=== PATIENT | female | born 1950 | race Caucasian/White ===

== ENCOUNTER 2018-10-08 06:00 | Observation (INO) ==
[2018-10-01 17:56] LABS: URINE SOURCE CLEAN CATCH
[2018-10-01 17:59] LABS: BASO# 0.04 X1000 (0.0-0.2); BASO% 0.4 % (0.0-0.8); EOS# 0.22 X1000 (0.0-0.7); EOS% 2.4 % (0.0-10.0); HEMATOCRIT 40.3 % (37.0-47.0); HEMOGLOBIN 12.5 g/dL (12.0-16.0); LYMPH# 1.73 X1000 (1.2-3.4); LYMPH% 18.5 % (20.5-51.1); MCH 25.3 PG (27-31); MCV 81.6 FL (81-99); MONO# 0.82 X1000 (0.11-0.59); MONO% 8.8 % (1.7-9.3); MPV 9.7 FL (7.4-10.4); NEUT# 6.52 X1000 (1.4-6.5); NEUT% 69.9 % (42.2-75.2); PLT 345 X1000 (130-400); RBC 4.94 XMIL (4.2-5.4); UR EPITHELIAL CELLS <10 /HPF (<10); URINE BACTERIA NEGATIVE /HPF; URINE RBC <10 /HPF (<10); URINE WBC <10 /HPF (<10); WBC 9.33 X1000 (4.8-10.8)
--- NOTE | 2018-10-01 17:59 | EKG Report ---
Test Performed on : 10/01/2018 5:14:43 PM Test Reason : PAT Blood Pressure : / mmHG Vent. Rate : 086 BPM Atrial Rate : 086 BPM P-R Int : 178 ms QRS Dur : 098 ms QT Int : 368 ms P-R-T Axes : 052 021 035 degrees QTc Int : 440 ms Normal sinus rhythm. Normal ECG When compared with ECG of 19-FEB-2018 10:59, No significant change was found Confirmed by Regan Coombs MD ([id number]) on 10/01/2018 9:00:02 PM
[2018-10-01 18:00] LABS: BILIRUBIN URINE NEGATIVE (NEGATIVE); BLOOD URINE SMALL (NEGATIVE); COLOR YELLOW; GLUCOSE URINE NEGATIVE (NEGATIVE); KETONE URINE NEGATIVE (NEGATIVE); LEUKOCYTES URINE SMALL (NEGATIVE); NITRITE URINE NEGATIVE (NEGATIVE); PH URINE 5.5; PROTEIN URINE NEGATIVE (NEGATIVE); SP GRAVITY URINE 1.017; TURBIDITY URINE CLEAR (CLEAR); UROBILINOGEN URINE NORMAL (NORMAL)
[2018-10-01 18:06] LABS: INR 0.88; PROTIME 12.7 Seconds (11.0-16.0)
[2018-10-01 18:07] LABS: PTT 29.6 Seconds (22.3-41.8)
[2018-10-01 18:58] LABS: AGAP 13; BUN 13 mg/dL (8-22); CALCIUM 9.1 mg/dL (8.8-10.2); CHLORIDE 105 mmol/L (98-107); COSMO 288; CREATININE 0.7 mg/dL (0.5-0.9); ESTIMATED GFR > 60; GLUCOSE 118 mg/dL (70-104); POTASSIUM 4.1 mmol/L (3.5-5.1); SODIUM 144 mmol/L (136-145); TCO2 26 mmol/L (25-35)
[2018-10-08] MEDS ORDERED: COLACE ONE (06:23)
[2018-10-08] MEDS ORDERED: LYRICA ONE (06:23)
[2018-10-08] MEDS ORDERED: LR 1,000 ML ONE (06:23)
[2018-10-08] MEDS ORDERED: CELEBREX ONE (06:23)
[2018-10-08] MEDS ORDERED: REGLAN ONE (06:23)
[2018-10-08] MEDS ORDERED: KEFZOL 1 GM/D5W 2 GM/100 ML IVPB ONE (06:23)
[2018-10-08] MEDS ORDERED: PEPCID ONE (06:23)
[2018-10-08] MEDS ORDERED: FENTANYL ONE (06:52)
[2018-10-08] MEDS ORDERED: XYLOCAINE-MPF 2% ONE (06:52)
[2018-10-08] MEDS ORDERED: DIPRIVAN 1% ONE (06:52)
[2018-10-08] MEDS ORDERED: ROBINUL ONE (06:52)
[2018-10-08] MEDS ORDERED: DURAMORPH ONE (07:02)
[2018-10-08] MEDS ORDERED: VANCOMYCIN ONE (07:03)
[2018-10-08] MEDS ORDERED: TORADOL ONE (07:03)
[2018-10-08] MEDS ORDERED: MARCAINE 0.25% PF/EPI 1:200,000 ONE (07:03)
[2018-10-08] MEDS ORDERED: SODIUM CHLORIDE 0.9% ONE (07:03)
[2018-10-08] MEDS ORDERED: EXPAREL 1.3% ONE (07:04)
[2018-10-08] MEDS ORDERED: NEOSPORIN G.U. IRRIGANT ONE (07:04)
[2018-10-08] MEDS ORDERED: VERSED ONE ×2 (08:03→09:44)
[2018-10-08] MEDS ORDERED: ZOFRAN ONE (08:03)
[2018-10-08] MEDS ORDERED: OFIRMEV 1000 MG/ISOTONIC SOLN 1,000 MG/100 ML BOTTLE ONE (08:03)
[2018-10-08] MEDS ORDERED: DECADRON ONE (08:03)
[2018-10-08] MEDS: CYKLOKAPRON 1,000 MG/NS 2,000 MG/200 ML IVPB ONE ×2 (08:45→09:52)
[2018-10-08] MEDS ORDERED: NS 1,000 ML ONE (10:32)
[2018-10-08 10:49] LABS: URINE SOURCE CATH
[2018-10-08 11:00] LABS: BILIRUBIN URINE NEGATIVE (NEGATIVE); BLOOD URINE NEGATIVE (NEGATIVE); COLOR STRAW; GLUCOSE URINE NEGATIVE (NEGATIVE); KETONE URINE NEGATIVE (NEGATIVE); LEUKOCYTES URINE NEGATIVE (NEGATIVE); NITRITE URINE NEGATIVE (NEGATIVE); PROTEIN URINE NEGATIVE (NEGATIVE); SP GRAVITY URINE 1.006; TURBIDITY URINE CLEAR (CLEAR); UROBILINOGEN URINE NORMAL (NORMAL)
[2018-10-08 11:02] LABS: UR EPITHELIAL CELLS <10 /HPF (<10); URINE BACTERIA NEGATIVE /HPF; URINE RBC <10 /HPF (<10); URINE WBC <10 /HPF (<10)
--- NOTE | 2018-10-08 11:30 | Diag Imaging Result Doc PS360 ---
EXAM: KNEE 1-2 VIEWS-LEFT 10/08/2018 HISTORY: left total knee TECHNIQUE: Portable left knee two views COMMENT: There is a total knee arthroplasty. There is no evidence of acute fracture. There appears to be some cement lateral to the joint space. IMPRESSION: No acute bony abnormality. Postsurgical change. Electronically signed by Ricci Murillo 10/08/2018 11:28 AM
[2018-10-08] MEDS ORDERED: ZOFRAN PO PRN (12:00)
[2018-10-08] MEDS ORDERED: OXY IR PO PRN (12:00)
[2018-10-08] MEDS ORDERED: MORPHINE IV PRN ×2 (12:00)
[2018-10-08] MEDS: NS 1,000 ML IV SCH (12:00)
--- NOTE | 2018-10-08 12:33 | OPERATIVE NOTE ---
PROCEDURE DATE: 10/08/2018 PREOPERATIVE DIAGNOSIS: Degenerative arthritis left knee. POSTOPERATIVE DIAGNOSIS: Degenerative arthritis left knee. PROCEDURES: Left total knee arthroplasty with DePuy Delta Xtend size 4, posterior stabilized femur, size 4 tibial tray, 12 mm rotating platform tibial insert, and a 32 mm medialized anatomic patella. SURGEON: Frandy Boo MD. SLOT MACHINE DEPARTMENT FLOORPERSON: Yvonne Trejo SECOND SUEDE CLEANER: Caleb Kim RN. ANESTHESIA: General. IV FLUIDS: 1000 mL lactated Ringer's. ESTIMATED BLOOD LOSS: 25 mL. COMPLICATIONS: None. INDICATIONS: The patient is a pleasant 78-year-old female with a chronic history of worsening pain and discomfort of the left knee. The pains progressed to affect her activities of daily living. X-rays of degenerative osteoarthritis with recommendation to proceed with left total knee arthroplasty was offered. Risks and benefits of surgery were explained, including the risks of anesthesia, , bleeding, infection, postoperative stiffness, nerve injury, blood clots, and other imponderables. All questions were answered. The patient and family wished to proceed with surgery. DETAILS OF OPERATION: The patient was taken to the operating room and underwent spinal anesthesia. After adequate anesthesia was obtained, she is placed supine on the operating table. The left lower extremity was prepped and draped in sterile fashion. Esmarch was used to exsanguinate left lower extremity. The tourniquet was inflated to 350 mmHg. A standard anterior incision made with skin knife. Medial and lateral skin envelopes were developed. Standard medial parapatellar arthrotomy was then performed. Patella fat pad was excised. Superior retractors were then placed. Approximately 1 cm anterior to the PCL insertion, a starting reamer was passed. The intramedullary guide with a distal femoral cutting block was pinned in position. Distal femoral cut was then performed in a standard fashion. A sizing block was placed in a size 4 corresponding holes pins were placed. A size 4 cutting block was pinned and placed in position. Anterior, posterior, chamfer cuts were then made. Attention was then turned to the proximal tibia where using the extramedullary guide, the proximal tibia cutting block was pinned in position. It had good alignment confirmed with the alignment radha. The proximal tibia was then resected. Medial and lateral menisci were excised. A curved osteotome was used to remove the posterior osteophytes off the distal femur. A spacer block was then placed and good soft tissue balance with flexion and extension. Attention turned back to the proximal tibia where a size 4 tibial tray appeared to be the correct size. This was pinned in position. This followed by a central reamer and a fin punch. A box cutting guide was then pinned on the distal femur. A box cut was then performed. A trial femoral component was then placed and 2 lug holes were drilled. Trial tibial insert was then placed and had good soft tissue balancing. Patella everted and resected in standard fashion. A size 32 appeared to be the correct size. Corresponding holes were drilled. The trial components and placed. It had good patellofemoral tracking. The trial components were then removed. Copious irrigation was then performed with antibiotic pulsatile lavage while vancomycin was mixed with cement on the back table. Sequential cementing was then performed first with the tibial tray and excess cement was removed with a [place] followed by the femoral component and excess cement removed with a [place] followed by trial tibial insert in full extension and axial loading was maintained while cement cured. The patella was cemented in standard fashion. Patella clamp was placed. While cement was curing, Exparel was placed in deep soft tissue, as well as the subcutaneous tissue. After cement cured, peripheral cement was removed with small osteotome. A 12 mm rotating platform tibial insert appeared to be the correct size. The trial insert was removed. Exparel was placed in the deep posterior capsule. This followed by copious irrigation once again. A 12 mm rotating platform tibial insert was then placed. The knee was then carried through range of motion. Good range of motion, good soft tissue balance, and good patellofemoral tracking. A 1/8 Hemovac drain was placed and was not sewn in. Copious irrigation performed once again with antibiotic pulsatile lavage. Number 1 Vicryl was then used for the arthrotomy followed by 2-0 Vicryl, subcutaneous tissue and skin lucy. Adaptic, sterile 4 x 4, Webril, cryo unit, and Damián wrap applied to the left lower extremity. Patient tolerated the procedure well and was transferred to the recovery room in stable condition. cc: Frandy Boo MD
[2018-10-08] MEDS: OXY IR PO PRN (13:25)
[2018-10-08] MEDS: KEFZOL 2 GM/D5W 2 GM/50 ML IVPB IV SCH (16:11)
[2018-10-08] MEDS: COLACE PO SCH (21:57)
[2018-10-08] MEDS: MORPHINE IV PRN (21:57)
[2018-10-09] MEDS: KEFZOL 2 GM/D5W 2 GM/50 ML IVPB IV SCH (00:55)
[2018-10-09] MEDS: MORPHINE IV PRN (03:22)
[2018-10-09] MEDS: NS 1,000 ML IV SCH (05:20)
[2018-10-09] MEDS ORDERED: XARELTO PO SCH (06:00)
[2018-10-09] MEDS: OXY IR PO PRN ×2 (06:13→10:44)
[2018-10-09 06:32] LABS: AGAP 12; BUN 10 mg/dL (8-22); CALCIUM 9.1 mg/dL (8.8-10.2); CHLORIDE 104 mmol/L (98-107); COSMO 283; CREATININE 0.6 mg/dL (0.5-0.9); ESTIMATED GFR > 60; GLUCOSE 120 mg/dL (70-104); POTASSIUM 3.5 mmol/L (3.5-5.1); SODIUM 142 mmol/L (136-145); TCO2 26 mmol/L (25-35)
[2018-10-09 06:40] LABS: HEMATOCRIT 36.6 % (37.0-47.0); HEMOGLOBIN 11.4 g/dL (12.0-16.0)
[2018-10-09] MEDS ORDERED: SYNTHROID PO SCH (07:00)
[2018-10-09] MEDS ORDERED: PROTONIX PO SCH (07:00)
--- NOTE | 2018-10-09 07:51 | ORTHOPAEDICS PROGRESS NOTE ---
DATE: 10/09/2018 SUBJECTIVE: The patient is a pleasant, 68-year-old female, who is 1 day status post left total knee arthroplasty. She is currently resting comfortably. OBJECTIVE: On physical exam, the patient's left knee, her wound looks good. Dressing is intact. Calf is soft. She has active dorsiflexion and plantar flexion. LABORATORY DATA: Her hemoglobin and hematocrit are pending. IMPRESSION: Postoperative day #1 status post left total knee arthroplasty. PLAN: At this point, the patient was able to mobilize with Physical Therapy. Will have her work with therapy again today, and plan on discharging home after therapy session. Will arrange for home physical therapy. She will follow up in the office on 10/20/2018. cc: Frandy Boo MD
[2018-10-09] MEDS: COLACE PO SCH (08:43)
[2018-10-09] MEDS ORDERED: PERIDEX MT SCH (09:00)
[2018-10-09] MEDS ORDERED: NORVASC PO SCH (09:00)
[2018-10-09 11:45] VITALS: BP 127/52
[2018-10-09] MEDS ORDERED: KLONOPIN PO SCH (21:00)
[2018-10-09] MEDS ORDERED: ZANAFLEX PO SCH (21:00)
[2018-10-09] MEDS ORDERED: LYRICA PO SCH (21:00)
== END 2018-10-09 12:38 | disposition home health service (06) ==
LOC: OR 06:00 → INTOOBSV 11:43 → 4N 11:43
PROVIDERS: ADMIT Orthopaedic Surgery Adult Reconstructive Orthopaedic Surgery; ATTEND Orthopaedic Surgery Adult Reconstructive Orthopaedic Surgery
CPT/HCPCS: 73560; 80048; 81001; 85014; 85018; 85025; 85610; 85730; 86850; 86900; 86901; 93005; 93010; 94761; 94799; 97110; 97162; 97530; A9270; C9290; J0131; J0690; J1100; J1885; J2250; J2270; J2274; J2275; J2405; J3010; J3370; J7030; J7120; Q9974; S0020

== ENCOUNTER 2019-05-27 06:54 | Day surgery (SDC) ==
--- NOTE | 2019-05-20 17:49 | EKG Report ---
Test Performed on : 05/20/2019 5:43:53 PM Test Reason : PAT Blood Pressure : / mmHG Vent. Rate : 077 BPM Atrial Rate : 077 BPM P-R Int : 198 ms QRS Dur : 098 ms QT Int : 382 ms P-R-T Axes : 055 031 058 degrees QTc Int : 432 ms Normal sinus rhythm. Normal ECG When compared with ECG of 01-OCT-2018 17:14, No significant change was found Confirmed by Regan Coombs MD ([id number]) on 05/20/2019 7:57:10 PM
[2019-05-20 18:22] LABS: BILIRUBIN URINE NEGATIVE (NEGATIVE); BLOOD URINE TRACE (NEGATIVE); COLOR YELLOW; GLUCOSE URINE NEGATIVE (NEGATIVE); KETONE URINE NEGATIVE (NEGATIVE); LEUKOCYTES URINE TRACE (NEGATIVE); NITRITE URINE NEGATIVE (NEGATIVE); PH URINE 5.5; PROTEIN URINE NEGATIVE (NEGATIVE); SP GRAVITY URINE 1.019; TURBIDITY URINE CLEAR (CLEAR); URINE SOURCE CLEAN CATCH; UROBILINOGEN URINE NORMAL (NORMAL)
[2019-05-20 18:24] LABS: INR 0.97
[2019-05-20 18:25] LABS: PTT 28.6 Seconds (22.3-41.8); UR EPITHELIAL CELLS <10 /HPF (<10); URINE BACTERIA NEGATIVE /HPF; URINE RBC <10 /HPF (<10); URINE WBC <10 /HPF (<10)
[2019-05-20 18:34] LABS: AGAP 12; ALBUMIN 3.9 g/dL (3.5-5.0); BUN 13 mg/dL (8-22); CALCIUM 9.2 mg/dL (8.8-10.2); CHLORIDE 104 mmol/L (98-107); COSMO 282; CREATININE 0.9 mg/dL (0.5-0.9); ESTIMATED GFR > 60; GLUCOSE 112 mg/dL (70-104); POTASSIUM 4.2 mmol/L (3.5-5.1); SODIUM 141 mmol/L (136-145); TCO2 25 mmol/L (25-35)
[2019-05-20 18:47] LABS: BASO# 0.05 X1000 (0.0-0.2); BASO% 0.7 % (0.0-0.8); EOS# 0.18 X1000 (0.0-0.7); EOS% 2.4 % (0.0-10.0); HEMATOCRIT 40.1 % (37.0-47.0); HEMOGLOBIN 12.6 g/dL (12.0-16.0); LYMPH# 2.14 X1000 (1.2-3.4); LYMPH% 29.1 % (20.5-51.1); MCH 26.3 PG (27-31); MCHC 31.4 g/dL (33-37); MCV 83.7 FL (81-99); MONO# 0.68 X1000 (0.11-0.59); MONO% 9.3 % (1.7-9.3); MPV 10.5 FL (7.4-10.4); NEUT% 58.5 % (42.2-75.2); PLT 259 X1000 (130-400); RBC 4.79 XMIL (4.2-5.4); RDW 15.6 % (11.5-14.5); WBC 7.35 X1000 (4.8-10.8)
[2019-05-20 19:27] LABS: HEMOGLOBIN A1C 5.2 % (4.8-6.0)
[2019-05-27] MEDS ORDERED: LYRICA ONE (07:16)
[2019-05-27] MEDS ORDERED: CELEBREX ONE (07:16)
[2019-05-27] MEDS ORDERED: COLACE ONE (07:16)
[2019-05-27] MEDS ORDERED: PEPCID ONE (07:16)
[2019-05-27] MEDS ORDERED: REGLAN ONE (07:16)
[2019-05-27] MEDS ORDERED: KEFZOL 2 GM/D5W 2 GM/50 ML IVPB ONE (07:17)
[2019-05-27] MEDS ORDERED: LR 1,000 ML ONE (07:17)
[2019-05-27] MEDS ORDERED: VANCOMYCIN ONE (08:00)
[2019-05-27] MEDS ORDERED: MARCAINE 0.25% PF/EPI 1:200,000 ONE (08:00)
[2019-05-27] MEDS ORDERED: TORADOL ONE (08:00)
[2019-05-27] MEDS ORDERED: DURAMORPH ONE (08:00)
[2019-05-27] MEDS ORDERED: EXPAREL 1.3% ONE (08:01)
[2019-05-27] MEDS ORDERED: NEOSPORIN G.U. IRRIGANT ONE (08:01)
[2019-05-27] MEDS ORDERED: SODIUM CHLORIDE 0.9% ONE (08:01)
[2019-05-27] MEDS ORDERED: DIPRIVAN 1% 500 MG/50 ML BOTTLE ONE (08:21)
[2019-05-27] MEDS ORDERED: FENTANYL ONE (08:26)
[2019-05-27] MEDS: CYKLOKAPRON 1,000 MG/NS 2,000 MG/200 ML IVPB ONE ×2 (09:20→10:39)
[2019-05-27] MEDS ORDERED: OFIRMEV 1000 MG/ISOTONIC SOLN 1,000 MG/100 ML BOTTLE ONE (09:31)
[2019-05-27] MEDS ORDERED: ZOFRAN ONE (09:39)
[2019-05-27] MEDS ORDERED: DECADRON ONE (09:39)
[2019-05-27 10:56] LABS: URINE SOURCE CATH
[2019-05-27 11:01] LABS: BILIRUBIN URINE NEGATIVE (NEGATIVE); BLOOD URINE NEGATIVE (NEGATIVE); COLOR YELLOW; GLUCOSE URINE NEGATIVE (NEGATIVE); KETONE URINE NEGATIVE (NEGATIVE); LEUKOCYTES URINE NEGATIVE (NEGATIVE); NITRITE URINE NEGATIVE (NEGATIVE); PROTEIN URINE NEGATIVE (NEGATIVE); SP GRAVITY URINE 1.017; TURBIDITY URINE CLEAR (CLEAR); UR EPITHELIAL CELLS <10 /HPF (<10); URINE BACTERIA NEGATIVE /HPF; URINE RBC <10 /HPF (<10); URINE WBC <10 /HPF (<10); UROBILINOGEN URINE NORMAL (NORMAL)
[2019-05-27] MEDS ORDERED: NS 1,000 ML ONE (11:11)
[2019-05-27] MEDS: DILAUDID ONE ×2 (11:13→11:20)
--- NOTE | 2019-05-27 11:29 | OPERATIVE NOTE ---
PROCEDURE DATE: 05/27/2019 PREOPERATIVE DIAGNOSIS: Degenerative osteoarthritis of the right knee. POSTOPERATIVE DIAGNOSIS: Degenerative osteoarthritis of the right knee. PROCEDURE PERFORMED: Right total knee arthroplasty, DePuy Attune size 4 posterior stabilized femur, size 5 tibial tray, 10 mm rotating platform tibial insert, and a 35 mm medialized anatomic patella. SURGEON: Frandy Boo MD. HEMMING AND TACKING MACHINE OPERATOR: ANIBAL Curry, who was necessary for manipulation of the extremity during the case and retraction, and improved efficiency. SECOND BUNCH MAKER: Caleb Kim RN. ANESTHESIA: Spinal with LMA. INTRAVENOUS FLUIDS: Lactated Ringer's 1500 mL. ESTIMATED BLOOD LOSS: 4 mL. TOURNIQUET TIME: 85 minutes at 300 mmHg. COMPLICATIONS: None. INDICATION: The patient is a pleasant, 69-year-old female with chronic history of pain and discomfort in her right knee. She has continued pain and discomfort despite appropriate nonoperative treatment. X-rays revealed degenerative osteoarthritis. Recommendation to proceed with a right total knee arthroplasty was offered. Risks and benefits of surgery were explained including the risks of anesthesia, , bleeding, infection, failure to relieve pain, postop stiffness, nerve injury, blood clots, and other imponderables. All questions were answered. Patient and family wished to proceed with surgery. DETAILS OF OPERATION: The patient was taken to the operating room and placed supine on the operating table. Once adequate anesthesia was obtained, the patient's right lower extremity was subsequently prepped and draped in the usual sterile fashion. Esmarch was used to exsanguinate the right lower extremity. The tourniquet was inflated to 300 mmHg. A standard anterior incision was made with a skin knife. Medial and lateral skin envelopes were developed. Standard medial parapatellar arthrotomy was then performed. Patella fat pad was excised. Retractors were then placed. Approximately 1 cm anterior to the PCL insertion, starting reamer was passed. Intramedullary guide with a distal femoral cutting block was pinned in position. Distal femoral cut was then performed in a standard fashion. A sizing block was then placed and measured size 4. Corresponding size 4 cutting block was pinned in position. Anterior, posterior, and chamfer cuts were then made. Attention was then turned to the proximal tibia. Using extramedullary guide, the proximal tibia cutting block was pinned in position. Had good alignment confirmed with the alignment radha. The proximal tibia was then resected. Medial and lateral menisci were excised. A spacer block was placed and had good soft tissue balance in both flexion and extension. Attention was then turned to the proximal tibia where a size 5 tibial tray appeared to be the correct size. This was pinned in position. This was followed by a central reamer and a fin punch. A box cutting guide was then pinned on the distal femur. A box cut was performed. A trial femoral component was then placed and 2 lug holes were drilled. Trial tibial insert was then placed and had good soft tissue balancing. The patella was everted and resected in standard fashion. A size 35 appeared to be the correct size. Corresponding holes were drilled. A size 35 patellar component was then placed. It had good patellofemoral tracking. Trial components were then removed. Copious irrigation was performed with antibiotic pulsatile lavage while vancomycin was mixed with cement on back table. Sequential cementing was then performed, first with the tibial tray and excess cement was removed with a [place], followed by the femoral component and excess cement was removed with a [place], followed by the trial tibial insert in full extension and axial loading was maintained while cement cured. The patella component was then placed in position and a patella clamp was placed. While the cement was curing, Exparel was placed in the soft tissue as well as the subcutaneous tissue. After cement had cured, peripheral cement was removed with a small osteotome. A 10 mm rotating platform tibial insert was deemed to be the correct size. The trial insert was removed. Exparel was placed in the deep posterior capsule. The wound was copiously irrigated with antibiotic pulse lavage. A 10 mm rotating platform tibial insert was then placed. The knee was then carried through a range of motion with good range of motion, good soft tissue balance, and good patellofemoral tracking. A 1/8 Hemovac drain was placed. It was not sewn in. Copious irrigation was then performed once again with antibiotic pulsatile lavage. Number 1 Vicryl was used to repair the arthrotomy, followed by 2-0 Vicryl to repair the subcutaneous tissue, and skin lucy. Adaptic, sterile 4 x 4, Webril, cryo unit, and Damián wrap were applied to the right lower extremity. Patient tolerated the procedure well and was transferred to the recovery room in stable condition. cc: Frandy Boo MD
[2019-05-27] MEDS ORDERED: OXY IR ONE (11:32)
--- NOTE | 2019-05-27 11:46 | Diag Imaging Result Doc PS360 ---
EXAM: KNEE 1-2 VIEWS-RIGHT HISTORY: post op TECHNIQUE: Two views COMPARISON: None. FINDINGS: Recent orthopedic replacement. There are anterior skin lucy and a superior surgical drain. No fracture. No dislocation. IMPRESSION: Good alignment to the femoral and tibial components following orthopedic replacement of the knee. Electronically signed by Abdifatah Zapien 05/27/2019 11:43 AM
[2019-05-27] MEDS ORDERED: NS 1,000 ML IV SCH (12:30)
[2019-05-27] MEDS ORDERED: OXY IR PO PRN (12:30)
[2019-05-27] MEDS ORDERED: MORPHINE IV PRN ×3 (12:30)
[2019-05-27] MEDS ORDERED: ZOFRAN PO PRN (12:30)
[2019-05-27] MEDS: TYLENOL PO SCH ×2 (16:51→22:50)
[2019-05-27] MEDS: KEFZOL 2 GM/D5W 2 GM/50 ML IVPB IV SCH (16:51)
[2019-05-27] MEDS: LYRICA PO SCH (20:26)
[2019-05-27] MEDS: COLACE PO SCH (20:26)
[2019-05-27] MEDS ORDERED: KLONOPIN PO SCH (21:00)
[2019-05-28] MEDS: KEFZOL 2 GM/D5W 2 GM/50 ML IVPB IV SCH (00:12)
[2019-05-28] MEDS ORDERED: XARELTO PO SCH (06:00)
[2019-05-28] MEDS: TYLENOL PO SCH ×2 (06:00→09:58)
[2019-05-28] MEDS: OXY IR PO PRN ×2 (06:11→09:58)
[2019-05-28] MEDS ORDERED: SYNTHROID PO SCH (07:00)
[2019-05-28] MEDS ORDERED: PROTONIX PO SCH (07:00)
[2019-05-28 07:12] LABS: HEMATOCRIT 37.8 % (37.0-47.0); HEMOGLOBIN 11.9 g/dL (12.0-16.0)
--- NOTE | 2019-05-28 07:35 | ORTHOPAEDICS PROGRESS NOTE ---
DATE: 05/28/2019 SUBJECTIVE: The patient is a pleasant 69-year-old female who is 1 day status post right total knee arthroplasty. She is currently resting comfortably. PHYSICAL EXAMINATION: On physical exam, the patient's right lower extremity, her wound looks good. The dressing is intact. Her calf is soft. She has active dorsiflexion and plantar flexion. She is able to perform straight leg raise. Her labs are pending. IMPRESSION: Postoperative day number 1 status post right total knee arthroplasty. PLAN: At this point, we will plan on discharging home after physical therapy. She was able to ambulate yesterday 80 feet. We will arrange for home physical therapy. She will follow up in the office on 06/09/2019. cc: Frandy Boo MD
[2019-05-28 07:41] LABS: AGAP 11; BUN 10 mg/dL (8-22); CALCIUM 9.2 mg/dL (8.8-10.2); CHLORIDE 107 mmol/L (98-107); COSMO 284; CREATININE 0.7 mg/dL (0.5-0.9); ESTIMATED GFR > 60; GLUCOSE 100 mg/dL (70-104); SODIUM 143 mmol/L (136-145); TCO2 25 mmol/L (25-35)
[2019-05-28 08:22] VITALS: BP 113/58
[2019-05-28] MEDS ORDERED: NORVASC PO SCH (09:00)
[2019-05-28] MEDS: COLACE PO SCH (09:58)
[2019-05-28] MEDS: LYRICA PO SCH (09:58)
== END 2019-05-28 11:53 | disposition home or self-care (01) ==
LOC: OR 06:54 → 4N 06:54 → OR 05-28 11:53
PROVIDERS: ATTEND Orthopaedic Surgery Adult Reconstructive Orthopaedic Surgery